=== PATIENT | male | born 1985 | race Caucasian/White ===

== ENCOUNTER 2016-08-21 14:42 | Emergency (ER) | payer OTHER ==
[~2016-08-21] VITALS: Ht 182.9 cm; Wt 83.2 kg
[2016-08-21 14:44] VITALS: BP 128/76; PULSE 66; RESP 15; O2SAT 99
--- NOTE | 2016-08-21 15:04 | ED.REPORT ---
HPI-Rash / Abscess Date of Service Aug 21, 2016 ED Provider: History of Present Illness: 30-year-old male here for for head infection. Started 1 week ago. He went to the doctor's on Sunday was started on mupirocin and Bactrim. No Culture taken. Since then the pain has decreased but the swelling has increased and is moving. The swelling is now generalized around his left periorbital area and his left cheek.. It is continuing to increase through the day. Face is not painful, no itching either. He has not had a fever he otherwise feels well. 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 Sent from walk in clinic Nursing Notes Stated Complaint: LEFT EYE SWELLING Chief Complaint: Skin Rash/Abscess Allergies: Coded Allergies: No Known Allergies (Unverified , 08/21/16) Scheduled Cephalexin (Keflex) 500 Mg Capsule 500 MG PO QID General Time Seen by MD: 14:49 Chief Complaint Abscess, Rash, Red area Hx Obtained From: Patient Arrived By: Walk-in Onset Occurred: 1 week ago Symptom Duration: Constant Location: : Head/face Severity: Current: No pain currently Severity: Maximum: Mild Associated with: Denies Dizziness, Denies Fever, Denies Headache Pertinent Negative: Pt denies other symptoms Recent Healthcare: No recent doctor visit Similar Sx Previous: No Review of Systems Constitutional: Denies: Chills, Fatigue, Fever Eyes: Denies: Discharge bilateral, Eye pain bilateral, Visual loss bilateral Ears / Nose / Throat: Denies: Nasal congestion, Throat pain, Throat swelling GI: Denies: Nausea, Vomiting Complete sys rev & neg: except as marked. Physical Exam Initial Vital Signs Vital Signs (First) Date Time Temp Pulse Resp B/P Pulse Ox O2 Delivery O2 Flow Rate FiO2 08/21/16 14:44 36.1 66 15 128/76 99 Room Air Initial VS: Reviewed, Vital signs normal Head / Eyes: Atraumatic, Normocephalic, PERRL ENT: Mucous membranes moist, Conjunctiva normal, No scleral icterus Neck: Supple, Non-tender, Full range of motion Respiratory: Breath sounds normal, Clear to auscultation, No respiratory distress Cardiovascular: Regular rate & rhythm, Heart sounds normal, Intact distal pulses Lymphatic: No lymphadenopathy Neurologic: Alert, Oriented, Nonfocal Psychiatric: Mood/affect normal, Behavior normal, Normal thought content General/Constitutional: Awake, Alert, No acute distress, Well appearing, Well developed, Well hydrated Skin: Atraumatic, Color NL Color / Condition: Positive: Erythema localized Rash / Lesion Notes: 1.5 cm diameter nontender erythematous papule on forehead. Erythema and Swelling noted a few mm around abscess. nonerythematous, nontender swelling extending down around L eye and into L cheek. Non tender to palpate entire area. No pain with extraocular movement. Rash / Lesion Location: Positive: Face Head / Eyes: PERRL, EOMI nontender face/abscess. ENT: Atraumatic, Airway patent, Mucous membranes moist, Pharynx NL, No peritonsillar abscess, No pooling of secretions, No trismus, Tympanic membs NL, Ext aud canal NL, Mastoid area NL, Nose exam NL, No sinus tenderness, No facial swelling, Gums/dentition NL Respiratory / Chest: Atraumatic, Breath sounds NL, Breath sounds = bilat, No respiratory distress Cardiovascular: Heart rate NL, Regular rhythm, Heart sounds NL, No gallop, No murmurs, No rubs Procedures Incision & Drainage Abscess I & D Abscess: Anesthsized area of incision only. culture obtained. pt tolerated well. Procedure Performed by: [facility] Location of Abscess: forehead Local Anesthesia: Lidocaine w epi 2% Incised Abscess with Scalpel: #11 Pus Drained: Small, Purulent discharge, Bloody Post-Procedure / Complications: Dressing applied Discharge & Departure Impression: Primary Impression: Cellulitis Site of cellulitis: face Qualified Code: L03.211 - Cellulitis of face Additional Impression: Abscess Disposition: Home Discharge Condition All VS Reviewed: Yes Condition: Stable Patient Instructions: Abscess (ED) Additional Instructions: Take keflex for added bacterial protection, take benadryl for swelling. You need to follow up in 24 hrs to recheck face and possibly for another injection of rocephin. 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 Take 25mg benadryl as needed for facial swelling. return to er immediately if increased swelling/pain/fevers/worsening condition. otherwise, followup tomorrow as discussed. apply ice for swelling. Referrals: Leidy Escobar DO (PCP) Keenan Mustafa (Family) EDSupervising Provider for APC: Lakesha Trevizo MD, Linnea K ARNP Aug 21, 2016 15:04
[2016-08-21] MEDS ORDERED: cefTRIAXone Inj 1,000 MG, Lidocaine PF 1% Inj 2.1 ML in Syringe 0 EACH IM ONE ×2 (15:20→15:25)
[2016-08-21] MEDS ORDERED: diphenhydrAMINE 25 mg Capsule PO ONE (15:20)
[2016-08-21] MEDS ORDERED: CEPH-512 PO (15:24)
== END 2016-08-21 15:45 | disposition home or self-care (01) ==
LOC: SED 14:42
DX: L03.211 Cellulitis of face (principal); L02.01 Cutaneous abscess of face
CPT/HCPCS: 10060; 87070; 87075; 87185; 87205; 96372; 99284; J0696